=== PATIENT | female | born 1955 | race Asian ===

== ENCOUNTER 2018-02-23 05:45 | Inpatient (IN) | payer OTHER ==
[2018-02-23] MEDS ORDERED: ROCURONIUM 50 MG INJ (07:00)
[2018-02-23] MEDS ORDERED: LIDOCAINE 2% (SDV) 5 ML INJ (07:00)
[2018-02-23] MEDS ORDERED: PROPOFOL 200 MG INJ (07:00)
[2018-02-23] MEDS ORDERED: morphine SULFATE/PF (10 MG/10 ML) INJ (07:08)
[2018-02-23] MEDS ORDERED: BUPIVACAINE 0.75%/DEXT (SPINAL) 2 ML INJ (07:08)
[2018-02-23] MEDS ORDERED: EPINEPHrine 1 MG INJ (07:08)
[2018-02-23] MEDS ORDERED: FENTAnyl 50 MCG/ML VIAL IV ×3 (09:00)
[2018-02-23] MEDS ORDERED: hydrALAzine 20 MG INJ IV (09:00)
[2018-02-23] MEDS ORDERED: ONDANSETRON 4 MG INJ IV ×2 (09:00→12:30)
[2018-02-23] MEDS ORDERED: METOCLOPRAMIDE 10 MG INJ IV (09:00)
[2018-02-23] MEDS ORDERED: KETOROLAC 30 MG INJ IV ×2 (09:00→12:30)
[2018-02-23] MEDS ORDERED: MIDAZOLAM 1 MG/ML 2 ML INJ IV (09:00)
[2018-02-23] MEDS ORDERED: DIPHENHYDRAMINE 50 MG INJ IV ×2 (09:00→12:30)
[2018-02-23] MEDS ORDERED: OXYCODONE/ACETAMINOPHEN (5/325) TAB PO ×2 (09:00)
[2018-02-23] MEDS ORDERED: EPHEDrine SULFATE 50 MG/5 ML SYG IV (09:00)
[2018-02-23] MEDS ORDERED: LABETALOL HCL 20MG INJ IV (09:00)
[2018-02-23] MEDS ORDERED: HYDROmorphONE 1 MG/5 ML IV SYRINGE IV ×3 (09:00)
[2018-02-23] MEDS ORDERED: MEPERIDINE 25 MG INJ IV (09:00)
[2018-02-23] MEDS ORDERED: ALBUTEROL 0.083% (NEB) 2.5 MG/3 ML AMP HHN (09:00)
[2018-02-23] MEDS ORDERED: MIDAZOLAM 1 MG/ML 2 ML INJ (09:33)
[2018-02-23] MEDS ORDERED: PHENYLephrine (100 MCG/ML) 5ML SYG (09:40)
[2018-02-23] MEDS: VASOPRESSIN 20 UNITS INJ (10:05)
[2018-02-23] MEDS ORDERED: DEXAMETHASONE 4 MG/ML 1 ML INJ (10:39)
[2018-02-23] MEDS ORDERED: ONDANSETRON 4 MG INJ (10:40)
[2018-02-23] MEDS ORDERED: GLYCOPYRROLATE 0.4 MG INJ (11:53)
[2018-02-23] MEDS ORDERED: NEOSTIGMINE 3 MG/3 ML SYRINGE (11:53)
[2018-02-23] MEDS ORDERED: NALOXONE (0.4 MG/ML) INJ IV (12:30)
[2018-02-23] MEDS ORDERED: HYDROmorphONE 0.5 MG/0.5 ML SYG IV ×2 (12:30)
[2018-02-23] MEDS ORDERED: PHENYLephrine 10 MG INJ (14:52)
[2018-02-23] MEDS: LACTATED RINGER'S 1,000 ML IV ×2 (17:49→22:42)
[2018-02-24 05:10] LABS: ADD MAN DIFF? NO
[2018-02-24 05:15] LABS: BASOPHILS % 0.1 % (0.0-2.0); HEMATOCRIT 29.1 % (37.0-47.0); LYMPHOCYTES # 0.9 10^3/ul (0.8-2.9); LYMPHOCYTES % 6.6 % (15.0-51.0); MEAN CORPUSCULAR HEMOGLOBIN 29.8 pg (29.0-33.0); MEAN CORPUSCULAR HGB CONC 34.4 g/dl (32.0-37.0); MEAN CORPUSCULAR VOLUME 86.6 fl (82.0-101.0); MEAN PLATELET VOLUME 8.7 fl (7.4-10.4); MONOCYTE # 0.6 10^3/ul (0.3-0.9); MONOCYTES % 4.7 % (0.0-11.0); NEUTROPHIL # 11.6 10^3/ul (1.6-7.5); NEUTROPHILS % 88.1 % (39.0-77.0); PLATELET COUNT 245 10^3/UL (140-415); RED BLOOD COUNT 3.36 10^6/ul (4.20-5.40); RED CELL DISTRIBUTION WIDTH 12.2 % (11.5-14.5)
[2018-02-24 05:15] LABS: WHITE BLOOD COUNT 13.2 10^3/ul (4.8-10.8)
[2018-02-24 05:26] LABS: ALANINE AMINOTRANSFERASE 23 IU/L (13-69); ALBUMIN 3.8 g/dl (3.3-4.9); ALBUMIN/GLOBULIN RATIO 1.22; ALKALINE PHOSPHATASE 54 IU/L (42-121); ANION GAP 16 (8-16); ASPARTATE AMINO TRANSFERASE 25 IU/L (15-46); BILIRUBIN,INDIRECT 0.3 mg/dl (0-1.1); BILIRUBIN,TOTAL 0.3 mg/dl (0.2-1.3); BLOOD UREA NITROGEN 13 mg/dl (7-20); CARBON DIOXIDE 29 mmol/L (21-31); CHLORIDE 104 mmol/L (97-110); CREATININE 0.58 mg/dl (0.44-1.00); GLUCOSE 129 mg/dl (70-220); POTASSIUM 4.7 mmol/L (3.5-5.1); SODIUM 144 mmol/L (135-144); TOTAL PROTEIN 6.9 g/dl (6.1-8.1)
[2018-02-24] MEDS: MAGNESIUM HYDROXIDE 30ML CUP PO (06:40)
[2018-02-24] MEDS: BISACODYL 10 MG SUPP PR (06:40)
[2018-02-24] MEDS: LACTATED RINGER'S 1,000 ML IV (06:40)
[2018-02-24] MEDS ORDERED: OXYCODONE/ACETAMINOPHEN (5/325) TAB PO ×2 (13:00)
[2018-02-24] MEDS ORDERED: BISACODYL 10 MG SUPP PR (17:00)
[2018-02-24] MEDS ORDERED: MAGNESIUM HYDROXIDE 30ML CUP PO (17:00)
[2018-02-24] MEDS: OXYCODONE/ACETAMINOPHEN (5/325) TAB PO (19:51)
[2018-02-25 05:53] LABS: ADD MAN DIFF? NO
[2018-02-25 06:01] LABS: WHITE BLOOD COUNT 11.2 10^3/ul (4.8-10.8)
[2018-02-25 06:01] LABS: BASOPHILS % 0.4 % (0.0-2.0); EOSINOPHILS # 0.1 10^3/ul (0.0-0.5); EOSINOPHILS % 0.5 % (0.0-7.0); HEMATOCRIT 29.8 % (37.0-47.0); HEMOGLOBIN 10.2 g/dl (12.0-16.0); LYMPHOCYTES % 17.5 % (15.0-51.0); MEAN CORPUSCULAR HEMOGLOBIN 30.1 pg (29.0-33.0); MEAN CORPUSCULAR HGB CONC 34.2 g/dl (32.0-37.0); MEAN CORPUSCULAR VOLUME 87.9 fl (82.0-101.0); MEAN PLATELET VOLUME 8.9 fl (7.4-10.4); MONOCYTE # 0.8 10^3/ul (0.3-0.9); NEUTROPHIL # 8.3 10^3/ul (1.6-7.5); NEUTROPHILS % 74.2 % (39.0-77.0); PLATELET COUNT 256 10^3/UL (140-415); RED BLOOD COUNT 3.39 10^6/ul (4.20-5.40)
[2018-02-25] MEDS: AMLODIPINE 10 MG TAB PO (12:51)
[2018-02-25] MEDS: LISINOPRIL 20 MG TAB PO (12:51)
[2018-02-25] MEDS ORDERED: GEMFIBROZIL 600 MG TAB PO (21:00)
== END 2018-02-25 17:45 | disposition home or self-care (01) | DRG 743 ==
LOC: REC 05:45 → MS1 16:02
PROC: 0UT98ZZ Resection of Uterus, Via Natural or Artificial Opening Endoscopic (ICD-10-PCS; principal; 2018-02-23 07:30)
PROC: 0UQG8ZZ Repair Vagina, Via Natural or Artificial Opening Endoscopic (ICD-10-PCS; 2018-02-23 07:30)
PROC: 0UBG7ZZ Excision of Vagina, Via Natural or Artificial Opening (ICD-10-PCS; 2018-02-23 07:30)
PROC: 0JQC3ZZ Repair Pelvic Region Subcutaneous Tissue and Fascia, Percutaneous Approach (ICD-10-PCS; 2018-02-23 07:30)
DX: N81.3 Complete uterovaginal prolapse (principal); D50.9 Iron deficiency anemia, unspecified; N81.10 Cystocele, unspecified; N84.0 Polyp of corpus uteri; D25.1 Intramural leiomyoma of uterus; I10 Essential (primary) hypertension; E78.5 Hyperlipidemia, unspecified
CPT/HCPCS: 80053; 85025; 86850; 86900; 86901; 87086; 88305

== ENCOUNTER 2018-09-24 22:23 | Emergency (ER) | payer OTHER ==
[2018-09-24] MEDS: KETOROLAC 15 MG INJ IV (22:58)
[2018-09-24] MEDS: SOD CHLORIDE 0.9% 1,000 ML IV (22:59)
[2018-09-24 23:01] LABS: ADD MAN DIFF? NO
[2018-09-24 23:03] LABS: BASOPHILS % 0.5 % (0.0-2.0); EOSINOPHILS # 0.5 10^3/ul (0.0-0.5); EOSINOPHILS % 5.6 % (0.0-7.0); HEMATOCRIT 36.5 % (37.0-47.0); HEMOGLOBIN 12.7 g/dl (12.0-16.0); LYMPHOCYTES # 1.9 10^3/ul (0.8-2.9); LYMPHOCYTES % 23.6 % (15.0-51.0); MEAN CORPUSCULAR HEMOGLOBIN 29.7 pg (29.0-33.0); MEAN CORPUSCULAR HGB CONC 34.8 g/dl (32.0-37.0); MEAN CORPUSCULAR VOLUME 85.3 fl (82.0-101.0); MEAN PLATELET VOLUME 8.6 fl (7.4-10.4); MONOCYTE # 0.5 10^3/ul (0.3-0.9); MONOCYTES % 5.6 % (0.0-11.0); NEUTROPHIL # 5.3 10^3/ul (1.6-7.5); NEUTROPHILS % 64.5 % (39.0-77.0); PLATELET COUNT 321 10^3/UL (140-415); RED BLOOD COUNT 4.28 10^6/ul (4.20-5.40); RED CELL DISTRIBUTION WIDTH 12.6 % (11.5-14.5)
[2018-09-24 23:03] LABS: WHITE BLOOD COUNT 8.2 10^3/ul (4.8-10.8)
[2018-09-24 23:21] LABS: ALANINE AMINOTRANSFERASE 18 IU/L (13-69); ALBUMIN 4.8 g/dl (3.3-4.9); ALBUMIN/GLOBULIN RATIO 1.17; ALKALINE PHOSPHATASE 93 IU/L (42-121); ANION GAP 7 (5-13); ASPARTATE AMINO TRANSFERASE 40 IU/L (15-46); BILIRUBIN,INDIRECT 0.3 mg/dl (0-1.1); BILIRUBIN,TOTAL 0.3 mg/dl (0.2-1.3); BLOOD UREA NITROGEN 19 mg/dl (7-20); CALCIUM 9.7 mg/dl (8.4-10.2); CARBON DIOXIDE 30 mmol/L (21-31); CHLORIDE 106 mmol/L (97-110); CREATININE 0.51 mg/dl (0.44-1.00); Estimated GFR > 60 mL/min (>60); GLUCOSE 125 mg/dl (70-220); LIPASE 219 U/L (23-300); POTASSIUM 4.5 mmol/L (3.5-5.1); SODIUM 143 mmol/L (135-144); TOTAL PROTEIN 8.9 g/dl (6.1-8.1)
[2018-09-24 23:56] LABS: ADD UMIC YES; UR ASCORBIC ACID NEGATIVE (NEGATIVE); UR BACTERIA FEW /HPF (NONE SEEN); UR BILIRUBIN (Dip) NEGATIVE (NEGATIVE); UR BLOOD (Dip) 1+ mg/dL (NEGATIVE); UR CLARITY SLIGHTLY CLOUDY (CLEAR); UR COLOR COLORLESS (YELLOW); UR GLUCOSE (Dip) NEGATIVE (NEGATIVE); UR KETONES (Dip) NEGATIVE (NEGATIVE); UR LEUKOCYTE ESTERASE (Dip) TRACE Leu/ul (NEGATIVE); UR NITRITE (Dip) NEGATIVE (NEGATIVE); UR RBC 0 /HPF (0-5); UR SPECIFIC GRAVITY (Dip) 1.003 (1.003-1.030); UR SQUAMOUS EPITHELIAL CELL FEW /HPF (FEW); UR TOTAL PROTEIN (Dip) NEGATIVE (NEGATIVE); UR UROBILINOGEN (Dip) NEGATIVE (NEGATIVE); UR WBC 2 /HPF (0-5)
== END 2018-09-25 00:45 | disposition home or self-care (01) ==
LOC: FTE 09-25 00:45
DX: M25.562 Pain in left knee (principal); I10 Essential (primary) hypertension
CPT/HCPCS: 29505; 36415; 71045; 72100; 73562; 80053; 81001; 83690; 85025; 96361; 96374; 99284-25

== ENCOUNTER 2019-03-26 12:47 | Emergency (ER) | payer OTHER ==
[2019-03-26] MEDS: ONDANSETRON (ODT) 4 MG TAB ODT (14:28)
[2019-03-26] MEDS: HYDROCODONE/APAP (5/325) TAB PO (14:31)
[2019-03-26] MEDS: KETOROLAC 30 MG INJ IM (14:31)
== END 2019-03-26 16:11 | disposition home or self-care (01) ==
LOC: FTE 16:11
DX: M54.5 Low back pain (principal); I10 Essential (primary) hypertension
CPT/HCPCS: 96372; 99284-25